=== PATIENT | female | born 1970 | race Two or more races ===

== ENCOUNTER 2024-04-30 13:38 | Inpatient (IN) | payer SELFPAY ==
[~2024-04-30] VITALS: Ht 162.6 cm; Wt 72.0 kg
--- NOTE | 2024-04-30 15:18 | DVH ---
EXAM: XY CHEST PORTABLE TECHNIQUE: Single frontal chest radiograph CLINICAL HISTORY: cough COMPARISON: None Findings/Impression: Frontal chest radiograph demonstrates no acute osseous or superficial soft tissue abnormalities. The trachea is midline. The cardiac silhouette and mediastinum are within normal limits. No pneumothorax, pleural effusions, or consolidations.
[2024-04-30 15:33] LABS: Basophils # (auto) 0 10 ^3/uL (0-0.2); Basophils % (auto) 0.2 % (0.0-2.0); Eosinophils # (auto) 0 10 ^3/uL (0-0.8); Hematocrit 40.2 % (36.0-46.0); Hemoglobin 13.6 g/dL (12.2-16.2); Lymphocytes # (auto) 0.2 10 ^3/uL (0.4-5.4); Lymphocytes % (auto) 2.2 % (10.0-50.0); Mean Corpuscular Hgb Conc. 33.7 g/dL (32.0-36.0); Monocytes # (auto) 0.7 10 ^3/uL (0-1.3); Monocytes % (auto) 8.3 % (0.0-12.0); Neutrophils # (auto) 7.9 10 ^3/uL (1.6-8.6); Neutrophils % (auto) 89.3 % (37.0-80.0); Platelet Count (auto) 128 10^3/uL (140-450); Red Blood Cells 4.52 10^6/uL (4.0-5.20); Red Cell Distribution Width 12.8 % (11.8-14.3); White Blood Cell 8.9 10^3/uL (4.4-10.8)
[2024-04-30 15:57] LABS: Albumin 4.5 g/dL (3.2-4.8); Anion Gap 11 (5-15); BUN/Creatinine Ratio 20.7 (10.0-20.0); Blood Urea Nitrogen 18 mg/dL (9-23); Calcium 9.9 mg/dL (8.7-10.4); Carbon Dioxide 23 mmol/L (20-31); Chloride 106 mmol/L (98-107); Potassium 3.7 mmol/L (3.5-5.1); Sodium 140 mmol/L (136-145); Total Protein 7.5 g/dL (5.7-8.2)
[2024-04-30 15:59] LABS: Alanine Aminotransferase 49 U/L (7-40); Alkaline Phosphatase 135 U/L (46-116); Aspartate Aminotransferase 48 U/L (13-40); Bilirubin, Total 1.3 mg/dL (0.2-1.0); Glucose 127 mg/dL (74-106)
--- NOTE | 2024-04-30 16:13 | ED.PDOC ---
History of Present Illness HPI Comments 53 y/o M presents with daughter for c/o fever, chills, generalized tremors, shortness of breath, dizziness, bilateral fingertips tingling sensation, and burning dysuria, today. Per daughter, patient is a Mandarin speaker and has been managing a fever, lately, for the past few days, with additional sudden onset of other remaining symptoms, today, at around 0430, this morning. patient comments on having no similar symptoms in the past along with any additional relevant or pertinent Hx, such as recent travel or sick contact. Patient has no other reported associated symptoms or modifiers at this time. Chief Complaint: Shortness of Breath Time Seen by MD: 15:00 Reviewed Notes: Nurses Notes, Medications, Allergies Information Source: Patient, Relative (Child) Mode of Arrival: Ambulatory Severity: Moderate Timing: Hours Duration: Since onset Prehospital treatment: None Past Medical History PAST MEDICAL HISTORY: Denies Surgical History: Denies all surgeries CAN STRIPER History: Denies all CAN STRIPER Hx Family History Family History: Unknown Social History Smoker: Non-Smoker Alcohol: Denies ETOH Use Drugs: Denies Drug Use Lives In: Home Constitutional: reports: chills, fever Respiratory: reports: shortness of breath Genitourinary: reports: dysuria Neurological: reports: dizziness, tingling (finger tips ), tremors Physical Exam General Appearance: No Apparent Distress, Normal HEENT: Normal ENT Inspection, Pharynx Normal, TMs Normal Neck: Full Range of Motion, Non-Tender, Normal, Normal Inspection Respiratory: Chest Non-Tender, Lungs Clear, No Accessory Muscle Use, No Respiratory Distress, Normal Breath Sounds Cardiovascular: No Edema, No JVD, No Murmur, No Gallop, Normal Peripheral Pulses, Regular Rate/Rhythm Breast Exam: Deferred Gastrointestinal: No Organomegaly, Non Tender, No Pulsatile Mass, Normal Bowel Sounds, Soft Genitalia: Deferred Pelvic: Deferred Rectal: Deferred Extremities: No calf tenderness, Normal capillary refill, Normal inspection, Normal range of motion, Non-tender, No pedal edema Musculoskeletal : Apperance: Normal Neurologic: Alert, value stream leader II-XII nml as Tested, No Motor Deficits, Normal Affect, Normal Mood, No Sensory Deficits Cerebellar Function: Normal Reflexes: Normal Skin: Dry, Normal Color, Warm Lymphatic: No Adenopathy Was a procedure done? Was a procedure done?: No Differential Dx Considerations may include: UTI, viral syndrome, electrolyte imbalance, dehydration X-Ray, Labs, Meds, VS Vital Signs Date Time Temp Pulse Resp B/P (MAP) Pulse Ox O2 Delivery O2 Flow Rate FiO2 04/30/24 14:37 98.4 108 19 114/65 (81) 98 Lab Test 04/30/24 15:13 Range/Units White Blood Count 8.9 4.4-10.8 10^3/uL Red Blood Count 4.52 4.0-5.20 10^6/uL Hemoglobin 13.6 12.2-16.2 g/dL Hematocrit 40.2 36.0-46.0 % Mean Corpuscular Volume 89.0 80.0-100.0 fL Mean Corpuscular Hemoglobin 30.0 28.0-32.0 pg Mean Corpuscular Hemoglobin Concent 33.7 32.0-36.0 g/dL Red Cell Distribution Width 12.8 11.8-14.3 % Platelet Count 128 L 140-450 10^3/uL Mean Platelet Volume 9.0 6.9-10.8 fL Neutrophils (%) (Auto) 89.3 H 37.0-80.0 % Lymphocytes (%) (Auto) 2.2 L 10.0-50.0 % Monocytes (%) (Auto) 8.3 0.0-12.0 % Eosinophils (%) (Auto) 0.0 0.0-7.0 % Basophils (%) (Auto) 0.2 0.0-2.0 % Neutrophils # (Auto) 7.9 1.6-8.6 10 ^3/uL Lymphocytes # (Auto) 0.2 L 0.4-5.4 10 ^3/uL Monocytes # (Auto) 0.7 0-1.3 10 ^3/uL Eosinophils # (Auto) 0 0-0.8 10 ^3/uL Basophils # (Auto) 0 0-0.2 10 ^3/uL Nucleated Red Blood Cells 0.0 % D-Dimer, Quantitative 0.74 H 0.0-0.49 mg/L FEU Sodium Level 140 136-145 mmol/L Potassium Level 3.7 3.5-5.1 mmol/L Chloride Level 106 98-107 mmol/L Carbon Dioxide Level 23 20-31 mmol/L Anion Gap 11 5-15 Blood Urea Nitrogen 18 9-23 mg/dL Creatinine 0.87 0.550-1.02 mg/dL Glomerular Filtration Rate Calc 80 >90 mL/min BUN/Creatinine Ratio 20.7 H 10.0-20.0 Serum Glucose 127 H 74-106 mg/dL Calcium Level 9.9 8.7-10.4 mg/dL Total Bilirubin 1.3 H 0.2-1.0 mg/dL Aspartate Amino Transferase (AST) 48 H 13-40 U/L Alanine Aminotransferase (ALT) 49 H 7-40 U/L Alkaline Phosphatase 135 H 46-116 U/L Troponin I High Sensitivity 128 *H </=34 ng/L B-Type Natriuretic Peptide 24.15 0-100 pg/mL Total Protein 7.5 5.7-8.2 g/dL Albumin 4.5 3.2-4.8 g/dL [place] [id number] Ph: [phone] DIAGNOSTIC IMAGING Diagnostic Imaging Report : [id number] Signed PATIENT: AICHA TOVAR ACCT: [id number] UNIT: [id number] : 1970 LOC: ER ROOM / BED: / AGE / SEX: 53 / F ADM STATUS: REG ER SERVICE 037 ORDERING PHYSICIAN: BAKARI BENSON MD PROCEDURE(s): CXRP - CHEST PORTABLE REASON: cough ORDER NUMBER(s): [id number], ACCESSION NUMBER(s): [id number] EXAM: XY CHEST PORTABLE TECHNIQUE: Single frontal chest radiograph CLINICAL HISTORY: cough COMPARISON: None Findings/Impression: Frontal chest radiograph demonstrates no acute osseous or superficial soft tissue abnormalities. The trachea is midline. The cardiac silhouette and mediastinum are within normal limits. No pneumothorax, pleural effusions, or consolidations. ATED BY: LONI OLIVER DO DICTATED DATE/TIME: 04/30/241515 SIGNED BY: LONI OLIVER DO SIGNED DATE/TIME: 04/30/241515 CC: X-Ray, Labs, Meds, VS Comment This 53-year-old female who presents secondary to chest pain, generalized body aches, subjective fevers, chills and cough. Here, workup was significant for a elevated troponin and nonspecific EKG changes. I am concerned the patient is having active cardiac event. As such, the patient was given aspirin will be admitted for further workup and management of her elevated troponin/NSTEMI. Time of 1ST Reevaluation: 15:30 Reevaluation 1ST: Unchanged Patient Education/Counseling: Diagnosis, Treatment Family Education/Counseling: Diagnosis, Treatment Departure 1 Departure Time of Disposition: 16:49 Impression: Primary Impression: NSTEMI (non-ST elevated myocardial infarction) Disposition: 09 ADMITTED INPATIENT Critical Care Note Critical Care Time?: No Stability Stability form required: No Heart Score Heart Score: Heart Score Response (Comments) Value History N/A 0 EKG N/A 0 Age N/A 0 Risk Factors N/A 0 Troponin N/A 0 Total 0 I personally scribed for BAKARI BENSON MD ([email or web address]) on 04/30/24 at 16:13. Electronically submitted by Joaquín Goodman ([email or web address]). BAKARI BENSON MD Apr 30, 2024 16:13
[2024-04-30] MEDS: ASPirin 81 mg TAB PO ONE (18:30)
[2024-04-30 18:45] VITALS: BP 102/63; PULSE 80; RESP 17; O2SAT 96
[2024-04-30 19:09] LABS: Urine Bacteria None Seen /hpf (None Seen)
[2024-04-30 19:16] LABS: Urine Blood 3+ /uL (Negative); Urine Clarity Ex.Turbid (Clear); Urine Color Brown (Yellow); Urine Mucus FEW (None Seen); Urine Protein, UAD 2+ (Negative); Urine Specific Gravity 1.018 (1.001-1.035); Urine Urobilinogen Normal (Negative); Urine WBC 3331 /hpf (0 - 5); Urine WBC Clumps PRESENT /hpf (None Seen)
[2024-04-30 19:48] LABS: COVID19 ANTIGEN SOFIA FIA NEGATIVE (NEGATIVE); Rapid Influenza A Negative (Negative); Rapid Influenza B Negative (Negative)
[2024-04-30] MEDS ORDERED: ACETAMINOPHEN 325 MG TAB PO PRN (20:00)
[2024-04-30] MEDS ORDERED: ALBUTEROL SULF 2.5 MG/0.5ML(0.5%) NEB SOLN NEB PRN (20:00)
[2024-04-30] MEDS ORDERED: MORPHINE SULFATE INJ 2 MG/ml SYRG IV PRN (20:00)
[2024-04-30] MEDS ORDERED: TEMAZEPAM 15 MG CAP PO PRN (20:00)
[2024-04-30] MEDS ORDERED: NITROGLYCERIN 0.4 MG SL TAB SL PRN (20:00)
[2024-04-30] MEDS ORDERED: ONDANSETRON HCL 4 MG/2 ML VIAL IV PRN (20:00)
--- NOTE | 2024-04-30 21:00 | DVHHP2 ---
History of Present Illness Reason for Visit: Shortness for breath History of Present Illness 53-year-old female presents for evaluation of shortness of breath. Patient presents with a one day history of Kat less weakness with associated fever and worsening shortness for breath. She denies chest pain at any point. Patient denies any previous medical problems. No other acute complaints were reported. Past Medical History Denies Past Surgical History Denies Family History Noncontributory Smoke: No ALCOHOL: none Drugs: None Lives: with Family Review of Systems Review of Systems Review of systems are currently negative otherwise addressed in HPI. Medications Current Medications Medications Dose Ordered Sig/Maribel Route Start Time Stop Time Status Last Admin Dose Admin Aspirin 162 mg DAILY PO 05/01/24 10:00 UNV Atorvastatin Calcium 10 mg HS PO 04/30/24 22:00 UNV Temazepam 15 mg QHSP PRN PO 04/30/24 20:00 UNV Ondansetron HCl 4 mg Q4HP PRN IV 04/30/24 20:00 UNV Enoxaparin Sodium 40 mg DAILY SC 05/01/24 10:00 UNV Acetaminophen 650 mg Q6HP PRN PO 04/30/24 20:00 UNV Nitroglycerin 0.4 mg Q5MINP PRN SL 04/30/24 20:00 UNV Morphine Sulfate 2 mg Q30M PRN IV 04/30/24 20:00 UNV Albuterol 2.5 mg Q6HPRN PRN NEB 04/30/24 20:00 UNV Exam Vital Signs Vital Signs Date Time Temp Pulse Resp B/P (MAP) Pulse Ox O2 Delivery O2 Flow Rate FiO2 04/30/24 18:45 80 17 102/63 (76) 96 04/30/24 18:45 Room Air* 0 21 04/30/24 14:37 98.4 Exam Gen: 53-year-old female no apparent distress Skin: Warm, dry, normal color and texture, no rash. HEENT: Normocephalic atraumatic, mucous membranes moist and pink. Neck: Cervical and supraclavicular nodes normal without enlargement, trachea is midline, thyroid gland is normal without masses. Pulmonary: Clear to auscultation and percussion bilaterally. Cardiac: Regular rate and rhythm. No murmur Abdomen: Soft, nontender, nondistended, bowel sounds present all 4 quadrants, no guarding, no rigidity, no organomegaly. Extremities: No cyanosis, clubbing, no edema Neuro: Cranial nerves II through XII grossly intact, normal affect and speech, no focal motor deficits. Labs/Xrays ORDERING PHYSICIAN: BAKARI BENSON MD PROCEDURE(s): CXRP - CHEST PORTABLE REASON: cough ORDER NUMBER(s): [id number], ACCESSION NUMBER(s): [id number] EXAM: XY CHEST PORTABLE TECHNIQUE: Single frontal chest radiograph CLINICAL HISTORY: cough COMPARISON: None Findings/Impression: Frontal chest radiograph demonstrates no acute osseous or superficial soft tissue abnormalities. The trachea is midline. The cardiac silhouette and mediastinum are within normal limits. No pneumothorax, pleural effusions, or consolidations. Labs Test 04/30/24 20:09 04/30/24 18:50 04/30/24 15:13 Range/Units Urine Color Brown H Yellow Urine Clarity Ex.turbid Clear Urine pH 6.0 5.0-9.[address] [place] 1.018 1.001-1.035 Urine Protein 2+ H Negative Urine Ketones 2+ H Negative Urine Blood 3+ H Negative /uL Urine Nitrite 2+ H Negative Urine Bilirubin 1+ H Negative Urine Urobilinogen Normal Negative mg/dL Urine Leukocyte Esterase 3+ Negative /uL Urine RBC 134 0 - 4 /hpf Urine WBC 3331 0 - 5 /hpf Urine WBC Clumps Present None Seen /hpf Urine Squamous Epithelial Cells Few <5 /hpf Urine Bacteria None seen None Seen /hpf Urine Mucus Few None Seen Urine Glucose Normal Normal mg/dL Influenza Type A Antigen Negative Negative Influenza Type B Antigen Negative Negative SARS-CoV-2 Antigen (Rapid) Negative NEGATIVE White Blood Count 8.9 4.4-10.8 10^3/uL Red Blood Count 4.52 4.0-5.20 10^6/uL Hemoglobin 13.6 12.2-16.2 g/dL Hematocrit 40.2 36.0-46.0 % Mean Corpuscular Volume 89.0 80.0-100.0 fL Mean Corpuscular Hemoglobin 30.0 28.0-32.0 pg Mean Corpuscular Hemoglobin Concent 33.7 32.0-36.0 g/dL Red Cell Distribution Width 12.8 11.8-14.3 % Platelet Count 128 L 140-450 10^3/uL Mean Platelet Volume 9.0 6.9-10.8 fL Neutrophils (%) (Auto) 89.3 H 37.0-80.0 % Lymphocytes (%) (Auto) 2.2 L 10.0-50.0 % Monocytes (%) (Auto) 8.3 0.0-12.0 % Eosinophils (%) (Auto) 0.0 0.0-7.0 % Basophils (%) (Auto) 0.2 0.0-2.0 % Neutrophils # (Auto) 7.9 1.6-8.6 10 ^3/uL Lymphocytes # (Auto) 0.2 L 0.4-5.4 10 ^3/uL Monocytes # (Auto) 0.7 0-1.3 10 ^3/uL Eosinophils # (Auto) 0 0-0.8 10 ^3/uL Basophils # (Auto) 0 0-0.2 10 ^3/uL Nucleated Red Blood Cells 0.0 % D-Dimer, Quantitative 0.74 H 0.0-0.49 mg/L FEU Sodium Level 140 136-145 mmol/L Potassium Level 3.7 3.5-5.1 mmol/L Chloride Level 106 98-107 mmol/L Carbon Dioxide Level 23 20-31 mmol/L Anion Gap 11 5-15 Blood Urea Nitrogen 18 9-23 mg/dL Creatinine 0.87 0.550-1.02 mg/dL Glomerular Filtration Rate Calc 80 >90 mL/min BUN/Creatinine Ratio 20.7 H 10.0-20.0 Serum Glucose 127 H 74-106 mg/dL Calcium Level 9.9 8.7-10.4 mg/dL Total Bilirubin 1.3 H 0.2-1.0 mg/dL Aspartate Amino Transferase (AST) 48 H 13-40 U/L Alanine Aminotransferase (ALT) 49 H 7-40 U/L Alkaline Phosphatase 135 H 46-116 U/L B-Type Natriuretic Peptide 24.15 0-100 pg/mL Total Protein 7.5 5.7-8.2 g/dL Albumin 4.5 3.2-4.8 g/dL Assessment/Plan Assessment/Plan Assessment NSTEMI Urinary tract infection Transaminitis Plan Admit the patient to telemetry to the hospitalist ACS protocol Rocephin Continue treatment per orders. Plan discussed with: Patient My Orders Orders - KENDRA GRAHAM Procedure Category Date Status Time Troponin-I Hs LAB 04/30/24 In Process 19:49 Troponin-I Hs LAB 04/30/24 Logged 20:49 Acute Hepatitis Panel LAB 04/30/24 In Process 19:49 Aspirin Tablet PHA 05/01/24 Logged 10:00 Atorvastatin (Lipitor) PHA 04/30/24 Logged 22:00 * Cardiology Consult CONS 04/30/24 Transmitted 19:49 Basic Metabolic Panel LAB 05/01/24 Verified 04:00 Admit ADMIT 04/30/24 Transmitted 19:49 Temazepam (Restoril) PHA 04/30/24 Logged 20:00 Ondansetron Hcl PHA 04/30/24 Logged (Zofran) 20:00 Enoxaparin Sodium PHA 05/01/24 Logged (Lovenox) 10:00 Cardiac DIET 05/01/24 Transmitted Diet-2gna,Lofat,Lochol Breakfast Echo 2d Mode Cardiac US 04/30/24 Logged DOP 19:49 Condition: Fair [facility] 04/30/24 In Process 19:49 Acetaminophen Tablet [facility] 04/30/24 Logged (Tylenol Tablet) 20:00 Bedrest With Bathroom [facility] 04/30/24 In Process Privileg 19:49 Nitroglycerin [facility] 04/30/24 Logged Sublingual (Ntrostat 20:00 Morphine Sulfate PHA 04/30/24 Logged Injection 20:00 Stat Ekg For Chest [facility] 04/30/24 In Process Pain 19:49 Notify Of Changes [facility] 04/30/24 In Process From Base 19:49 Italian Lecturer For [facility] 04/30/24 In Process 24 Hours 19:49 Emergency Dysrhythmia [facility] 04/30/24 In Process Protocol 19:49 Rhythm Strips Once [facility] 04/30/24 In Process Every Shift 19:49 Oxygen By Nasal RT 04/30/24 Transmitted Cannula 19:49 Albuterol Medneb PHA 04/30/24 Logged (Ventolin Medneb) 20:00 Date of Service: Apr 30, 2024 Billing Provider: KENDRA GRAHAM Common Visit Codes: [id number] INP/OBS CARE (HIGH) KENDRA GRAHAM Apr 30, 2024 21:00
[2024-04-30] MEDS ORDERED: ATORVASTATIN 20 MG TAB PO SCH (22:00)
[2024-05-01 09:10] LABS: Hepatitis A Ab IgM Negative; Hepatitis B Core IgM Negative (Negative); Hepatitis B Surface Antigen Negative (Negative); Hepatitis C Antibody Negative (Negative)
[2024-05-01] MEDS ORDERED: ASPirin 81 mg TAB PO SCH (10:00)
[2024-05-01] MEDS ORDERED: ENOXAPARIN SOD 40 MG/0.4 ML SYRINGE SC SCH (10:00)
== END 2024-04-30 21:34 | disposition left against medical advice (07) | DRG 281 ==
LOC: ER 13:38 → TELE 19:49
PROVIDERS: ADMIT Nurse Practitioner; ATTEND Nurse Practitioner
DX: I21.4 Non-ST elevation (NSTEMI) myocardial infarction (principal); N39.0 Urinary tract infection, site not specified; Z53.29 Procedure and treatment not carried out because of patient's decision for other reasons; R74.01 Elevation of levels of liver transaminase levels; Z79.899 Other long term (current) drug therapy
CPT/HCPCS: 36415; 71045; 80053; 80074; 81001; 83880; 84484; 85025; 85379; 87426; 87804; G0378